=== PATIENT | male | born 1970 | race Caucasian/White ===

== ENCOUNTER → 2017-03-16 10:20 | Outpatient (CLI) | payer BC, SELFPAY | PROVIDERS: Visit Provider Otolaryngology | DX: Z53.9 Procedure and treatment not carried out, unspecified reason (principal) ==

== ENCOUNTER 2017-08-07 07:49 | Day surgery (SDC) | payer OTHER, SELFPAY ==
[2017-08-07] VITALS (7 sets, daily range): BP systolic 122–143; BP diastolic 78–94; PULSE 50–68; RESP 14–16; TEMP 36.3–36.4; O2SAT 99–100; BMI 36.9
--- NOTE | 2017-08-07 10:39 | PCM.OPRPT ---
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 Given his need for frequent MRIs of the brain and spine however he was not a candidate for cochlear implantation on that ear and alternative hearing rehabilitation options were pursued. He did not do well with a cross type hearing aid but did very well with a trial of bone-conduction hearing from the right side delivered to the hearing left ear and the above procedure was elected for rehabilitation of his hearing loss and he was eager to proceed. The risks, alternatives, potential benefits, and complications were discussed at length and any questions answered to the patient and/or caregiver's satisfaction. Witnessed informed consent was obtained in the office, and the patient and/or caregiver was agreeable to proceed. Procedure went as follows: The patient was identified in the preoperative holding after site marking the appropriate ear in accordance with the patient's history, office chart, and physical exam. The patient was then brought to the operating room and placed under general anesthesia and intubated. When appropriate anesthesia is obtained, the left scalp was prepped and draped in usual sterile fashion. The abutment site was then marked 5 cm posterior to the external auditory meatus and injected with 2.0 mL of 1% lidocaine with 100,000 epinephrine. Using a 5 mm punch, The skin and subcutaneous tissue were then resected. The periosteum overlying the operative site was then removed sharply with an iris scissor and a periosteal elevator. The agricultural aircraft pilot drill hole was then created and palpated to ensure bone at the maximal depth of the hole and then finalize to 4 mm in size to allow for placement of the titanium abutment. The bony fragments were then suctioned and irrigated clear and the 4 x 14 mm abutment was then placed in accordance of the manufactures directions. Xeroform gauze was then placed at the skin edge followed by the healing cap. The patient was then to return to anesthesia, was revived and extubated without complication having tolerated the procedure well. Type of Anesthesia:: General Anesthesiologist: Mario Alberto Kinney Special Medications: none Specimen's removed: none Drains: none Estimated Blood Loss (mL): 0 mL Fluids Replaced: 750 mL Grafts/Implants Used: 4 mm x 14 mm titanium abutment - Complications none - Admit VTE Documentation VTE Present on Admission: No VTE Mechan Device Prophylaxis: SCD's VTE Pharm Prophylaxis ordered?: No
--- NOTE | 2017-08-07 10:46 | OP.PCM_ITS ---
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 Given his need for frequent MRIs of the brain and spine however he was not a candidate for cochlear implantation on that ear and alternative hearing rehabilitation options were pursued. He did not do well with a cross type hearing aid but did very well with a trial of bone-conduction hearing from the right side delivered to the hearing left ear and the above procedure was elected for rehabilitation of his hearing loss and he was eager to proceed. The risks, alternatives, potential benefits, and complications were discussed at length and any questions answered to the patient and/or caregiver's satisfaction. Witnessed informed consent was obtained in the office , and the patient and/or caregiver was agreeable to proceed. Procedure went as follows: The patient was identified in the preoperative holding after site marking the appropriate ear in accordance with the patient's history, office chart, and physical exam. The patient was then brought to the operating room and placed under general anesthesia and intubated. When appropriate anesthesia is obtained, the left scalp was prepped and draped in usual sterile fashion. The abutment site was then marked 5 cm posterior to the external auditory meatus and injected with 2.0 mL of 1% lidocaine with 100,000 epinephrine. Using a 5 mm punch, The skin and subcutaneous tissue were then resected. The periosteum overlying the operative site was then removed sharply with an iris scissor and a periosteal elevator. The pilot control operator helper drill hole was then created and palpated to ensure bone at the maximal depth of the hole and then finalize to 4 mm in size to allow for placement of the titanium abutment. The bony fragments were then suctioned and irrigated clear and the 4 x 14 mm abutment was then placed in accordance of the manufactures directions. Xeroform gauze was then placed at the skin edge followed by the healing cap. The patient was then to return to anesthesia, was revived and extubated without complication having tolerated the procedure well. Type of Anesthesia:: General Anesthesiologist: Mario Alberto Kinney Special Medications: none Specimen's removed: none Drains: none Estimated Blood Loss (mL): 0 mL Fluids Replaced: 750 mL Grafts/Implants Used: 4 mm x 14 mm titanium abutment - Complications none - Admit VTE Documentation VTE Present on Admission: No VTE Mechan Device Prophylaxis: SCD's VTE Pharm Prophylaxis ordered?: No
--- NOTE | 2017-08-07 10:46 | PCM.DC ---
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 hearing of left ear (Acute) You will use the following diet at home:: No restrictions Discharge Activity: Return to Normal Activity Call your doctor if your incision/area has: Continuous Slow Oozing, Increased Pain/ Swelling, Increased Redness, Foul Smelling Discharge, Swelling at the incision site Call your doctor if you observe: Fever of 101 or Higher, Uncontrolled pain Cleanse incision/area with: Keep Dressing Clean & Dry Allergies/Adverse Reactions: Allergies No Known Allergies Allergy (Verified 08/03/17 15:22) Medications to take at Discharge Fluticasone/Salmeterol [Advair 100/50 Diskus] 1 puff INHALATION BID PRN 02/13/17 RX: Omeprazole 40 mg PO DAILY 02/13/17 Multivitamin [Multiple Vitamins] 1 each PO DAILY 08/03/17 Primary Care Physician: Aleks Aguilar,Out of [Primary Care Provider] - Please Follow Up With: Jair Byrd MD When: 10 days
[2017-08-07] MEDS: Acetaminophen 325 MG Tablet 650 MG PO (11:31)
[2017-08-07] MEDS: Ibuprofen 400 MG Tablet PO (12:00)
== END 2017-08-07 12:07 | disposition home or self-care (01) ==
LOC: SDC 07:58 → AC 07:58
PROVIDERS: Visit Provider Otolaryngology
PROC: (CPT 69710; principal; 2017-08-07 09:15)
DX: H91.21 Sudden idiopathic hearing loss, right ear (principal); J45.909 Unspecified asthma, uncomplicated; K21.9 Gastro-esophageal reflux disease without esophagitis; Z79.899 Other long term (current) drug therapy; Z87.442 Personal history of urinary calculi; Z85.841 Personal history of malignant neoplasm of brain; Z92.21 Personal history of antineoplastic chemotherapy; Z92.3 Personal history of irradiation
CPT/HCPCS: 69710; J7120

== ENCOUNTER 2018-05-21 05:51 | Day surgery (SDC) | payer OTHER, SELFPAY ==
[2018-05-21 06:15] VITALS: BP 130/84; PULSE 82; RESP 18; TEMP 36.7; O2SAT 98; BMI 35.6
[2018-05-21] MEDS: Bacitracin 500 UNITS/GM PACKET (10:12)
--- NOTE | 2018-05-21 10:31 | PCM.OPRPT ---
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 This is been successfully rehabilitated with a bone anchored hearing device given his need for frequent MRI prohibiting use of a cochlear implantation in the right side. Unfortunately he lost the abutment due to minor trauma likely secondary to weakened bone from his history of spine radiation therapy necessitating the need for reimplantation of the abutment. The risks, alternatives, potential complications, and benefits were discussed at length and any questions answered to the patient and/or caregiver's satisfaction. Witnessed informed consent was obtained in the office, and the patient and/or caregiver was agreeable to proceed. Procedure went as follows: The patient was identified in the preoperative holding after site marking the appropriate ear in accordance with the patient's history, office chart, and physical exam. The patient was then brought to the operating room and placed under general anesthesia and intubated. When appropriate anesthesia was obtained, the scalp was prepped and draped in usual sterile fashion. The abutment site was then marked 5 cm posterior to the external auditory meatus and injected with 1 mL of 1% lidocaine with 100,000 epinephrine. Using a 15 blade scalpel, a 1.5 cm incision was then made over the area of the planned abutment placement. Dissection was then carried out to the soft tissues where the temporalis muscle was identified and incised. Incision was then carried out to the layer of the periosteum which was then sharply incised and elevated exposing the underlying bone. In the anterior superior portion of the incision, a charter pilot drill hole was then created and palpated to ensure bone at the bottom depth of the hole and then finalized to 4 mm in size to allow for placement of the titanium abutment. The bony fragments were then suctioned and irrigated clear and the 4 x 14 mm abutment was then placed in accordance with the manufacture's directions. Once this was completed, a similar charter pilot hole and finalized holes were then placed in the inferior aspect of the incision and a sleeper abutment 10 placed. The superstructure was then removed and the abutment then placed. The wound was then closed deeply with interrupted 4-0 Vicryl suture followed by a 5-0 Monocryl interrupted suture to the skin. Xeroform gauze was then placed at the skin edge followed by the healing cap. The patient was then to returned to anesthesia, was revived and extubated without complication having tolerated the procedure well. Type of Anesthesia:: General Anesthesiologist: Jair Jennings Special Medications: none Specimen's removed: none Drains: none Estimated Blood Loss (mL): 0 mL Fluids Replaced: 800 mL Grafts/Implants Used: 14 mm abutment and sleeper - Complications none - Admit VTE Documentation VTE Present on Admission: No VTE Mechan Device Prophylaxis: SCD's VTE Pharm Prophylaxis ordered?: No
--- NOTE | 2018-05-21 10:38 | OP.PCM_ITS ---
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 This is been successfully rehabilitated with a bone anchored hearing device given his need for frequent MRI prohibiting use of a cochlear implantation in the right side. Unfortunately he lost the abutment due to minor trauma likely secondary to weakened bone from his history of spine radiation therapy necessitating the need for reimplantation of the abutment. The risks, alternatives, potential complications, and benefits were discussed at length and any questions answered to the patient and/or caregiver's satisfaction. Witnessed informed consent was obtained in the office, and the patient and/or caregiver was agreeable to proceed. Procedure went as follows: The patient was identified in the preoperative holdi ng after site marking the appropriate ear in accordance with the patient's history, office chart, and physical exam. The patient was then brought to the operating room and placed under general anesthesia and intubated. When appropriate anesthesia was obtained, the scalp was prepped and draped in usual sterile fashion. The abutment site was then marked 5 cm posterior to the external auditory meatus and injected with 1 mL of 1% lidocaine with 100,000 epinephrine. Using a 15 blade scalpel, a 1.5 cm incision was then made over the area of the planned abutment placement. Dissection was then carried out to the soft tissues where the temporalis muscle was identified and incised. Incision was then carried out to the layer of the periosteum which was then sharply incised and elevated exposing the underlying bone. In the anterior superior portion of the incision, a pilot highway patrol drill hole was then created and palpated to ensure bone at the bottom depth of the hole and then finalized to 4 mm in size to allow for placement of the titanium abutment. The bony fragments were then suctioned and irrigated clear and the 4 x 14 mm abutment was then placed in accordance with the manufacture's directions. Once this was completed, a similar pilot highway patrol hole and finalized holes were then placed in the inferior aspect of the incision and a sleeper abutment 10 placed. The superstructure was then removed and the abutment then placed. The wound was then closed deeply with interrupted 4-0 Vicryl suture followed by a 5-0 Monocryl interrupted suture to the skin. Xeroform gauze was then placed at the skin edge followed by the healing cap. The patient was then to returned to anesthesia, was revived and extubated without complication having tolerated the procedure well. Type of Anesthesia:: General Anesthesiologist: Jair Jennings Special Medications: none Specimen's removed: none Drains: none Estimated Blood Loss (mL): 0 mL Fluids Replaced: 800 mL Grafts/Implants Used: 14 mm abutment and sleeper - Complications none - Admit VTE Documentation VTE Present on Admission: No VTE Mechan Device Prophylaxis: SCD's VTE Pharm Prophylaxis ordered?: No
--- NOTE | 2018-05-21 10:40 | PCM.DC ---
You will use the following diet at home:: No restrictions Discharge Activity: Return to Normal Activity Call your doctor if your incision/area has: Increased Pain/ Swelling, Increased Redness, Swelling at the incision site Call your doctor if you observe: Fever of 101 or Higher, Uncontrolled pain Allergies/Adverse Reactions: Allergies No Known Allergies Allergy (Verified 05/14/18 11:15) Medications to take at Discharge RX: Fluticasone/Salmeterol [Advair 100/50 Diskus] 1 puff INHALATION BID PRN PRN 02/13/17 RX: Omeprazole 40 mg PO DAILY 02/13/17 RX: Multivitamin [Multiple Vitamins] 1 each PO DAILY 08/03/17 Primary Care Physician: [facility] ,Out of [Primary Care Provider] - Test Results: Test results from this visit will be discussed in further detail at your follow-up appointment, if applicable. Please Follow Up With: Jair Byrd MD When: 2 weeks
[2018-05-21 10:48] VITALS: BP 130/81; BP 130/84; PULSE 73; RESP 16; TEMP 36.3; O2SAT 93
[2018-05-21 11:00] VITALS: BP 125/79; BP 130/84; PULSE 63; RESP 16; O2SAT 94
[2018-05-21 11:15] VITALS: BP 119/82; BP 130/84; PULSE 61; RESP 16; O2SAT 96
[2018-05-21 11:37] VITALS: BP 119/82; BP 130/84; PULSE 63; RESP 16; TEMP 36.3; O2SAT 93
[2018-05-21 12:16] VITALS: BP 126/67; BP 130/84; PULSE 65; RESP 16; TEMP 36.6; O2SAT 92
== END 2018-05-21 12:28 | disposition home or self-care (01) ==
LOC: SDC 05:54 → AC 05:54
PROVIDERS: Referring Provider Otolaryngology; Visit Provider Otolaryngology
PROC: (CPT 69710; principal; 2018-05-21 07:45)
DX: H91.21 Sudden idiopathic hearing loss, right ear (principal); H90.5 Unspecified sensorineural hearing loss; K21.9 Gastro-esophageal reflux disease without esophagitis; J45.909 Unspecified asthma, uncomplicated; Z85.841 Personal history of malignant neoplasm of brain; Z87.442 Personal history of urinary calculi; Z79.51 Long term (current) use of inhaled steroids
CPT/HCPCS: 69710; J7120; J2405

== ENCOUNTER → 2020-11-01 17:40 | Outpatient (CLI) | payer MEDICAID, SELFPAY ==
--- NOTE | 2020-11-01 | LES_PTH ---
PATIENT: JUANITA GRANADOS LOC: [facility] U#:[id number] AGE/SX: 54/M ROOM: RE11/01/[address]: Dr. Jair Byrd MD : 1970 BED: DIS: SPEC #: [id number] RECD: 11/01/20 17:40 STATUS: FRANDY DIONY #: [id number] ELA: 11/01/20 00:[address]: Jair Byrd DEPT: SURGICAL PATHOLOGY RECD BY: Patrick Palafox Tissues: Skin of face, NOS Procedures: Surgery Specimen Level IV HEADER OPERATION: Excision lesion right cheek PRE-OP DIAGNOSIS: Lesion right cheek; history of medulloblastoma; nonhealing growing lesion TISSUE SUBMITTED: Lesion right cheek MICROSCOPIC DIAGNOSIS Lesion of right cheek, biopsy: Basal cell carcinoma, superficial, nodular. See comment. AM:emery 11/05/2020 COMMENT The lesion appears to have completely excised in the planes examined. MICROSCOPIC DESCRIPTION Slides are reviewed. GROSS DESCRIPTION Received is one container labeled with the patient's name and not further designated. The specimen consists of a piece of ross-white skin measuring 1.6 x 0.7 cm and up to 0.7 cm in thickness. The specimen is inked, serially sectioned and submitted entirely in one cassette. / SJ:rg 11/02/20 TC:0 [facility]: [id number]
== END ==
PROVIDERS: Visit Provider Otolaryngology
DX: L98.9 Disorder of the skin and subcutaneous tissue, unspecified (principal)
CPT/HCPCS: 88305